=== PATIENT | female | born 1960 | race Caucasian/White ===

== ENCOUNTER 2021-03-02 06:17 | Day surgery (SDC) ==
[~2021-03-02 06:17] MED LIST: Povidone-Iodine 45 ML, Sodium Chloride IRRigation 1,000 ML IR ONE; TOTAL JOINT MIXTURE (100ML) INTRAART ONE
[2021-03-02] MEDS ORDERED: *HR* Succinylcholine 200 MG/10 ML VIAL IVP ONE (06:40)
[2021-03-02] MEDS ORDERED: Lidocaine -MPF 4% 5 ML AMPUL ONE (06:40)
[2021-03-02] MEDS ORDERED: *HR* Rocuronium Bromide 50 MG/5 ML VIAL ONE (06:40)
[2021-03-02] MEDS ORDERED: Lidocaine -MPF 2% 2 ML VIAL ONE (06:40)
[2021-03-02] MEDS ORDERED: Ondansetron 4 MG/2 ML VIAL ONE (06:40)
[2021-03-02] MEDS ORDERED: *HR* Midazolam HCl 2 MG/2 ML VIAL ONE (06:40)
[2021-03-02] MEDS ORDERED: *HR* Propofol 200 MG/20 ML VIAL IVP ONE ×3 (06:40→10:00)
[2021-03-02] MEDS ORDERED: *HR* FentaNYL (PF) 100 MCG/2 ML VIAL ONE (06:40)
[2021-03-02] MEDS ORDERED: CeFAZolin Syr 2,000MG/20 ML 2,000 MG/20 ML SYRINGE IVPB ONE (06:42)
[2021-03-02] MEDS ORDERED: Ringers Solution, Lactated 1,000 ML IVC SCH (06:45)
[2021-03-02] MEDS ORDERED: Vancomycin 1,000 MG VIAL ONE (07:19)
[2021-03-02] MEDS ORDERED: Tranexamic Acid 1,000 MG/10 ML VIAL ONE ×2 (07:21→08:49)
[2021-03-02] MEDS ORDERED: Ropivacaine/PF 0.5% 30 ML VIAL ONE (07:25)
[2021-03-02] MEDS ORDERED: ROPIVACAINE/PF/NS 0.25% 1 EACH SYRINGE INTRAART ONE (07:25)
[2021-03-02] MEDS ORDERED: *HR* HYDROmorphone PF 0.5 MG/0.5 ML SYRINGE IVP PRN (08:36)
[2021-03-02] MEDS ORDERED: Ondansetron 4 MG/2 ML VIAL IVP PRN ×2 (08:36→10:26)
[2021-03-02] MEDS ORDERED: *HR* OxyCODONE Immed Rel 5 MG TABLET PO PRN (08:36)
[2021-03-02] MEDS ORDERED: Sennosides 8.6 MG TABLET PO PRN (10:26)
[2021-03-02] MEDS ORDERED: *HR* Promethazine 25 MG/ML VIAL IM PRN (10:26)
[2021-03-02] MEDS ORDERED: MOM Conc 10 ML UD.LIQ PO PRN (10:26)
[2021-03-02] MEDS ORDERED: Dexamethasone Sodium Phos/PF 10 MG/ML VIAL IVP ONE (10:26)
[2021-03-02] MEDS ORDERED: Naloxone 0.4 MG/ML INJ IVP PRN (10:26)
[2021-03-02] MEDS ORDERED: Ketorolac 30 MG/ML VIAL IVP PRN (10:29)
[2021-03-02] MEDS: Ringers Solution, Lactated 1,000 ML IVC SCH ×2 (12:23→16:44)
[2021-03-02] MEDS ORDERED: *HR* OxyCODONE/APAP 5/325 TABLET PO PRN (12:32)
[2021-03-02] MEDS: CeFAZolin 2,000 MG/120 ML BAG IVPB SCH (16:44)
[2021-03-02] MEDS: *HR* OxyCODONE/APAP 5/325 TABLET PO PRN ×2 (16:48→23:04)
[2021-03-02] MEDS ORDERED: Ascorbic Acid 500 MG TABLET PO SCH (17:00)
[2021-03-03] MEDS: CeFAZolin 2,000 MG/120 ML BAG IVPB SCH (00:05)
[2021-03-03 02:33] LABS: Basophils % 0.1 %; Hematocrit 36.7 % (35.3-44.9); Hemoglobin 11.8 g/dL (11.5-15.4); Immature Granulocytes % 0.5 % (0-4); Lymphocytes # 0.9 K/mcL (0.6-4.6); Lymphocytes % 6.6 %; Mean Corpuscular HGB Conc 32.2 g/dL (31.6-35.5); Mean Corpuscular Hemoglobin 28.5 pg (28.0-33.3); Mean Corpuscular Volume 88.6 fL (83.0-100.0); Mean Platelet Volume 11.1 fL (9.4-12.4); Monocytes # 0.8 K/mcL (0.0-1.3); Monocytes % 5.6 %; Neutrophils # 12.2 K/mcL (1.6-8.9); Platelet Count 212 K/mcL (140-400); Red Blood Count 4.14 M/mcL (3.82-4.97); Red Cell Distribution Width 13.3 % (11.5-14.5); Segmented Neutrophils % 87.2 %
[2021-03-03 02:44] LABS: BUN/Creatinine Ratio 24 (6-26); Blood Urea Nitrogen 20 mg/dL (8-23); Calcium 8.9 mg/dL (8.6-10.3); Carbon Dioxide 26 mEq/L (23-29); Chloride 103 mEq/L (98-107); Glucose 183 mg/dL (70-105); Osmolality,Calculated 299 (280-300); Potassium 3.6 mEq/L (3.5-5.1); Sodium 141 mEq/L (136-145); eGFR For African Americans > 60 (> 60); eGFR For Non-African Americans > 60 (> 60)
[2021-03-03] MEDS: *HR* OxyCODONE/APAP 5/325 TABLET PO PRN ×2 (05:02→11:07)
[2021-03-03] MEDS ORDERED: Multivit/Ca/Min/Fe/FA 1 TAB TABLET PO SCH (09:00)
[2021-03-03 10:47] VITALS: BP 136/77
== END 2021-03-03 11:30 | disposition home or self-care (01) ==
LOC: SAMDAY 06:17 → 3NENU 11:13 → SAMDAY 03-03 11:30
PROVIDERS: ATTEND Orthopaedic Surgery